=== PATIENT | female | born 1950 | race Caucasian/White ===

== ENCOUNTER 2022-10-20 12:51 | Emergency (ER) | payer MEDICARE ==
[~2022-10-20] VITALS: Ht 162.6 cm; Wt 69.0 kg
[2022-10-20 12:54] VITALS: BP 129/79
[2022-10-20] MEDS ORDERED: CYCLOBENZAPRINE 10MG TABLET PO ONE (13:45)
[2022-10-20] MEDS ORDERED: ACETAMINOPHEN 325MG TABLET PO ONE (13:45)
[2022-10-20] MEDS ORDERED: CYCLOBENZAPRINE 10MG TABLET PO NR (15:45)
[2022-10-20] MEDS ORDERED: CYCL5TAB MT (16:00)
[2022-10-20] MEDS ORDERED: ACETAMINOPHEN 325MG TABLET PO NR (16:00)
[2022-10-20] MEDS ORDERED: TOPUD MT (16:00)
== END 2022-10-20 17:15 | disposition home or self-care (01) ==
LOC: ER 15:33
DX: S13.4XXA Sprain of ligaments of cervical spine, initial encounter (principal); V49.59XA Passenger injured in collision with other motor vehicles in traffic accident, initial encounter; Y93.89 Activity, other specified; Y92.89 Other specified places as the place of occurrence of the external cause; Y99.8 Other external cause status
CPT/HCPCS: 99284